=== PATIENT | male | born 1960 | race Caucasian/White ===

== ENCOUNTER 2021-11-10 10:45 | Day surgery (SDC) | payer OTHER ==
[2021-11-10] MEDS ORDERED: diphenhydrAMINE 25 MG CAP ONE (12:06)
[2021-11-10] MEDS ORDERED: Acetaminophen 500 MG TAB ONE (12:06)
[2021-11-10 14:46] VITALS: BP 136/71; TEMP 98.3
== END 2021-11-10 14:46 | disposition home or self-care (01) ==
LOC: ONC/OP 10:45
PROVIDERS: ATTEND Internal Medicine Hematology & Oncology
PROC: 30233N1 Transfusion of Nonautologous Red Blood Cells into Peripheral Vein, Percutaneous Approach (ICD-10-PCS; principal; 2021-11-10)
DX: D64.9 Anemia, unspecified (principal); D69.6 Thrombocytopenia, unspecified; Z88.5 Allergy status to narcotic agent
CPT/HCPCS: 36430; 86850; 86900; 86901; P9016

== ENCOUNTER 2022-02-17 11:00 | Outpatient (CLI) | payer OTHER | END 2022-02-17 11:01 | disposition home or self-care (01) | LOC: PET 11:00 | PROVIDERS: ATTEND Radiology Radiation Oncology | DX: C32.1 Malignant neoplasm of supraglottis (principal); Z92.21 Personal history of antineoplastic chemotherapy | CPT/HCPCS: 78815; A9552 ==

== ENCOUNTER 2022-12-05 09:10 | Inpatient (IN) | payer OTHER ==
[2022-12-05] MEDS ORDERED: Iopamidol-370 76% 500 ML MDV (1 ML CHARGE) ONE (09:17)
[2022-12-05 10:33] LABS: #Eosinphils 0.3 thou/uL (0.0-0.7); #Monocytes 0.4 thou/uL (0.11-0.59); #Neutrophils 3.4 thou/uL (1.40-6.50); %Basophils 0.6 % (0.0-1.0); %Eosinophils 5.6 % (0.0-10.0); %Lymphocytes 18.9 % (21.0-51.0); %Monocytes 7.6 % (0.0-10.0); %Neutrophils 66.9 % (42.0-75.0); Mean Corpuscular HGB CONC 33.2 g/dL (32.0-36.0); Mean Corpuscular Hemoglobin 30.1 pg (27.0-31.0); Mean Corpuscular Volume 90.5 fl (78.0-98.0); Mean Platelet Volume 9.9 fL (7.4-10.4); Platelet Count 196 10x3/uL (130-400); RBC Distribution Width 14.1 % (11.5-14.5); Red Blood Cell (RBC) Count 4.32 mill/uL (4.70-6.10)
[2022-12-05 10:59] LABS: ALT (SGPT) 28 U/L (8-55); AST (SGOT) 44 U/L (5-34); Albumin 4.6 g/dL (3.4-4.8); Alkaline Phosphatase 79 U/L (40-110); Anion Gap 14 mmol/L (10-20); BUN (Urea Nitrogen) 27 mg/dL (8.4-25.7); Bilirubin, Total 0.7 mg/dL (0.2-1.2); Calc. Creatinine Clearance 0 mL/min (70-130); Calcium 9.9 mg/dL (7.8-10.44); Carbon Dioxide 22 mmol/L (23-31); Chloride 102 mmol/L (98-107); Estimated GFR 39; Glucose 112 mg/dL (80-115); Potassium 4.1 mmol/L (3.5-5.1); Protein, Total 7.6 g/dL (5.8-8.1); Sodium 134 mmol/L (136-145)
[2022-12-05] MEDS ORDERED: Ondansetron ODT 4 MG TAB PO PRN (13:31)
[2022-12-05 14:11] LABS: #Eosinphils 0.3 thou/uL (0.0-0.7); #Monocytes 0.4 thou/uL (0.11-0.59); #Neutrophils 2.8 thou/uL (1.40-6.50); %Basophils 0.7 % (0.0-1.0); %Eosinophils 5.6 % (0.0-10.0); %Lymphocytes 22.1 % (21.0-51.0); %Monocytes 8.1 % (0.0-10.0); %Neutrophils 63.3 % (42.0-75.0); Hemoglobin 12.7 g/dL (14.0-18.0); Mean Corpuscular Hemoglobin 30.2 pg (27.0-31.0); Mean Corpuscular Volume 88.8 fl (78.0-98.0); Mean Platelet Volume 9.8 fL (7.4-10.4); Platelet Count 182 10x3/uL (130-400); RBC Distribution Width 14.1 % (11.5-14.5); Red Blood Cell (RBC) Count 4.21 mill/uL (4.70-6.10); White Blood Cell (WBC) Count 4.4 10x3/uL (4.8-10.8)
[2022-12-05 14:37] LABS: Anion Gap 15 mmol/L (10-20); BUN (Urea Nitrogen) 25 mg/dL (8.4-25.7); Calc. Creatinine Clearance 59 mL/min (70-130); Calcium 9.7 mg/dL (7.8-10.44); Carbon Dioxide 22 mmol/L (23-31); Chloride 101 mmol/L (98-107); Estimated GFR 42; Glucose 98 mg/dL (80-115); Potassium 3.9 mmol/L (3.5-5.1); Sodium 134 mmol/L (136-145)
[2022-12-05] MEDS ORDERED: Loperamide HCl 2 MG CAP PO PRN (18:57)
[2022-12-05 19:12] VITALS: BMI 31.1
[2022-12-05] MEDS: Rosuvastatin 10 MG TAB PO SCH (20:38)
[2022-12-06] MEDS: Amlodipine 5 MG TAB PO SCH (08:25)
[2022-12-06] MEDS ORDERED: Ondansetron PF 4 MG/2 ML Vial ONE (09:15)
[2022-12-06] MEDS ORDERED: GLYCOPYRROLATE/PF 0.2 MG/ML VIAL ONE (09:15)
[2022-12-06] MEDS ORDERED: PROPOFOL 200 MG/20 ML VIAL ONE (09:15)
[2022-12-06] MEDS ORDERED: Lidocaine 1% PF 5 ML VIAL ONE (09:15)
[2022-12-06] MEDS ORDERED: Protamine Sulfate 50 MG/5 ML VIAL ONE (09:27)
[2022-12-06] MEDS ORDERED: Bupivacaine HCl 0.5%/Epinephrine 1:200,000/PF 30 ml Vial ONE (09:27)
[2022-12-06] MEDS ORDERED: Heparin 10,000 UNITS/ 10 ML VIAL ONE (09:27)
[2022-12-06] MEDS ORDERED: fentaNYL PF 100 MCG/2 ML SYRINGE ONE (09:32)
[2022-12-06] MEDS ORDERED: Midazolam HCl 2 mg/2 ml Vial ONE ×3 (09:32→10:14)
[2022-12-06] MEDS ORDERED: SUGAMMADEX SODIUM 200 MG/2 ML VIAL ONE (09:39)
[2022-12-06] MEDS ORDERED: Insulin Regular 300 UNITS/3 ML VIAL ONE (09:39)
[2022-12-06] MEDS ORDERED: niCARdipine 25 MG/10 ML SDV ONE (09:39)
[2022-12-06] MEDS ORDERED: Fentanyl 250 MCG/5 ML VIAL ONE (09:39)
[2022-12-06] MEDS ORDERED: Rocuronium Bromide 50 MG/5 ML VIAL ONE (09:39)
[2022-12-06] MEDS ORDERED: Sodium Chloride 0.9% 100 ML ONE (09:44)
[2022-12-06] MEDS ORDERED: CEFAZOLIN 2 GM VIAL ONE (09:44)
[2022-12-06] MEDS ORDERED: CEFAZOLIN 2 GM in Sodium Chloride 0.9% 100 ML IVPB SCH (10:00)
[2022-12-06] MEDS ORDERED: Ketamine 50 MG/ML (10ML VIAL) ONE (10:11)
[2022-12-06] MEDS ORDERED: Ondansetron HCl/PF 4 MG/2 ML Vial IVP PRN (11:44)
[2022-12-06] MEDS ORDERED: traMADol HCl 50 MG TAB PO PRN (11:46)
[2022-12-06] MEDS ORDERED: fentaNYL 50 mcg/mL 1 mL Vial ONE (12:18)
[2022-12-06] MEDS: Sodium Chloride 0.9% 1,000 ML IV SCH ×2 (16:54→21:14)
[2022-12-06] MEDS: Rosuvastatin 10 MG TAB PO SCH (21:12)
[2022-12-06] MEDS: traMADol HCl 50 MG TAB PO PRN (21:12)
[2022-12-07] MEDS: traMADol HCl 50 MG TAB PO PRN ×2 (01:22→05:32)
[2022-12-07 05:26] LABS: Anion Gap 13 mmol/L (10-20); BUN (Urea Nitrogen) 20 mg/dL (8.4-25.7); Calc. Creatinine Clearance 59 mL/min (70-130); Calcium 8.7 mg/dL (7.8-10.44); Carbon Dioxide 22 mmol/L (23-31); Chloride 105 mmol/L (98-107); Estimated GFR 43; Glucose 108 mg/dL (80-115); Potassium 3.9 mmol/L (3.5-5.1); Sodium 136 mmol/L (136-145)
[2022-12-07] MEDS: Sodium Chloride 0.9% 1,000 ML IV SCH (08:58)
[2022-12-07] MEDS: Amlodipine 5 MG TAB PO SCH (08:58)
[2022-12-07] MEDS ORDERED: Aspirin 81 mg Enteric Coated Tablet PO SCH (09:00)
[2022-12-07 10:46] VITALS: BP 150/74; TEMP 97.3
== END 2022-12-07 10:48 | disposition home or self-care (01) | DRG 269 ==
LOC: ERS 09:10 → ERHOLD 12:49 → 2NO 18:15
PROVIDERS: ADMIT Thoracic Surgery (Cardiothoracic Vascular Surgery); ATTEND Thoracic Surgery (Cardiothoracic Vascular Surgery)
PROC: 04V03EZ Restriction of Abdominal Aorta with Branched or Fenestrated Intraluminal Device, One or Two Arteries, Percutaneous Approach (ICD-10-PCS; principal; 2022-12-06)
PROC: B4101ZZ Fluoroscopy of Abdominal Aorta using Low Osmolar Contrast (ICD-10-PCS; 2022-12-06)
DX: I71.40 Abdominal aortic aneurysm, without rupture, unspecified (principal); I10 Essential (primary) hypertension; K21.9 Gastro-esophageal reflux disease without esophagitis; Z92.3 Personal history of irradiation; Z98.890 Other specified postprocedural states; Z87.891 Personal history of nicotine dependence; Z88.6 Allergy status to analgesic agent; Z79.899 Other long term (current) drug therapy; Z85.21 Personal history of malignant neoplasm of larynx
CPT/HCPCS: 36415; 71275; 74174; 80048; 80053; 85025; 86850; 86900; 86901; C1768; C1769; J1642; J1644; J1815; J2250; J2405; J2704; J2720; J3010; J3490; J7050; Q9967